=== PATIENT | male | born 1990 | race Caucasian/White ===

== ENCOUNTER 2021-12-20 16:27 | Emergency (ER) | payer OTHER ==
[~2021-12-20] VITALS: Ht 170.2 cm; Wt 70.0 kg
[2021-12-20 17:59] VITALS: BP 124/77
== END 2021-12-20 18:19 | disposition home or self-care (01) ==
LOC: EMS 16:32
DX: Z11.1 Encounter for screening for respiratory tuberculosis (principal)
CPT/HCPCS: 71046; 99283